=== PATIENT | male | born 1935 | race Caucasian/White ===

== ENCOUNTER 2016-07-26 23:50 | Inpatient (IN) | payer MEDICARE, BC ==
[~2016-07-26 23:50] MED LIST: BONIVA150 M1 PO; CYMBALTA30 M1 PO; FEOSOL325 M1 PO; FLOMAX0.4 M1 PO; GABAPENTIN400 M3 PO; LYRICA100 MG/CAP PO; LYRICA50 MG/CAP PO; NORCO 5-325 TA1 EACH PO; PRILOSEC20 M1 PO; QUESTRAN LIGHT210 G1 PO; REMERON15 M1 PO; ROXICODONE15 M2 PO; SYNTHROID0.2 MG/TAB PO; TYLENOL325 M2 PO; TYZINE; ULTRAM50 M1 PO; VITAMIN D250000 UNI1 PO
[2016-07-27] MEDS ORDERED: COSOPT EYE DROP10 ML OP (01:35)
[2016-07-27] MEDS ORDERED: REQUIP0.25 M1 PO (01:35)
[2016-07-27 03:18] LABS: BASO % 0.3 % (0-2); EOSINOPHIL ABSOLUTE COUNT 0.1 tho/cmm (0.0-0.7); HCT-HEMATOCRIT 38.5 % (36.0-53.5); HGB-HEMOGLOBIN 12.4 gm/dl (13.5-17.0); IMMATURE GRANULOCYTES ABSOLUTE 0.03 tho/cmm (0-0.03); IMMATURE GRANULOCYTES PERCENT 0.3 % (0-0.3); LYMPH % 16.4 % (20-45); LYMPH ABSOLUTE COUNT 1.5 tho/cmm (0.8-4.5); MCH (MEAN CORPUSCULAR HGB) 33.6 pg (28.0-32.0); MCHC MEAN CORPUSCULAR HGB CONC 32.2 % (32.0-36.0); MCV (MEAN CELL VOLUME) 104.3 fl (82.0-96.0); MEAN PLATELET VOLUME 10.1 cmc (9.4-12.4); MONO % 6.2 % (0-12); MONOCYTE ABSOLUTE COUNT 0.6 tho/cmm (0.0-1.2); NEUTROPHIL ABSOLUTE COUNT 6.9 tho/cmm (1.6-8.0); NEUTROPHIL-AUTOMATED 6.9 tho/cmm (1.6-8.0); NEUTROPHILS % 75.8 % (40-80); PLATELET COUNT 355 tho/cmm (150-450); RED BLOOD COUNT 3.69 mil/cmm (4.40-5.70); WHITE BLOOD COUNT 9.1 tho/cmm (4.0-10.0)
[2016-07-27 03:28] LABS: ANION GAP 10 mmol/L (0-20); BLOOD UREA NITROGEN 20 mg/dl (6-24); CALCIUM 8.7 mg/dl (8.5-10.5); CARBON DIOXIDE-VENOUS 26 mmol/L (22-32); CHLORIDE 105 mmol/l (96-110); CREATININE 0.75 mg/dl (0.60-1.30); GLUCOSE 107 mg/dL (70-110); POTASSIUM 4.1 mmol/L (3.7-5.1); SODIUM 137 mmol/L (135-145); eGFR VALUE FOR BLACK >90 mL/Min
[2016-07-30 06:00] LABS: HGB-HEMOGLOBIN 10.5 gm/dl (13.5-17.0); PLATELET COUNT 310 tho/cmm (150-450)
[2016-07-30] MEDS ORDERED: LOVENOX40 MG/0.1 SC (14:32)
[2016-07-30] MEDS ORDERED: TYLENOL325 M2 PO (14:35)
[2016-07-30] MEDS ORDERED: XALATAN2.5 M1 LEFT EYE (14:38)
[2016-07-30] MEDS ORDERED: NORCO 5-325 TA1 EACH PO (14:40)
[2016-07-30] MEDS ORDERED: COLACE100 M1 PO (14:40)
[2016-07-30] MEDS ORDERED: PERCOCET 5-3251 EACH PO (14:41)
[2017-01-16] MEDS ORDERED: XARELTO10 M1 PO (11:03)
[2017-01-16] MEDS ORDERED: PERCOCET 5-3251 EACH PO (11:05)
== END 2016-07-30 15:50 | disposition swing bed (61) | DRG 562 ==
LOC: EDMED 23:50 → EMR2 07-27 03:55 → 5EB 07-27 05:02
PROVIDERS: Emergency Medicine; Internal Medicine; ADMIT Hospitalist
PROC: 2W3NX2Z Immobilization of Right Upper Leg using Cast (ICD-10-PCS; principal; 2016-07-28)
DX: S82.401A Unspecified fracture of shaft of right fibula, initial encounter for closed fracture (principal); E43 Unspecified severe protein-calorie malnutrition; I85.00 Esophageal varices without bleeding; G62.9 Polyneuropathy, unspecified; K76.6 Portal hypertension; D51.0 Vitamin B12 deficiency anemia due to intrinsic factor deficiency; M41.9 Scoliosis, unspecified; Z68.1 Body mass index [BMI] 19.9 or less, adult; S82.201A Unspecified fracture of shaft of right tibia, initial encounter for closed fracture; D50.9 Iron deficiency anemia, unspecified; E03.9 Hypothyroidism, unspecified; E55.9 Vitamin D deficiency, unspecified; F32.9 Major depressive disorder, single episode, unspecified; G25.81 Restless legs syndrome; J44.9 Chronic obstructive pulmonary disease, unspecified; Z87.891 Personal history of nicotine dependence; G71.3 Mitochondrial myopathy, not elsewhere classified; V00.811A Fall from moving wheelchair (powered), initial encounter; Y92.9 Unspecified place or not applicable; M81.0 Age-related osteoporosis without current pathological fracture
CPT/HCPCS: J1650; J2270; J2405; J7030; J7040